=== PATIENT | female | born 1985 | race Caucasian/White ===

== ENCOUNTER 2017-05-16 17:58 | Emergency (ER) | payer MEDICAID, OTHER ==
[~2017-05-16] VITALS: Ht 160 cm; Wt 50.0 kg
[~2017-05-16 17:58] MED LIST: LO LTAB PO; ZOLO50TA PO
[2017-05-16 18:00] VITALS: BP 109/54; PULSE 56; RESP 15; TEMP 98.2; O2SAT 98
[2017-05-16] MEDS ORDERED: OCUF0.3D RIGHT EYE (19:27)
--- NOTE | 2017-05-16 19:27 | PD ---
HPI Chief Complaint: Eye Problems/Injury Time Seen by Provider: 19:17 Travel History International Travel<30 days: No Contact w/Intl Traveler<30days: No Traveled to known affect area: No History of Present Illness HPI 32-year-old female who wears contacts, presents emergency brought in for evaluation right eye irritation. Patient states that she took her contacts off yesterday and they were "stuck." She noticed an area of redness under the contact and moderate pain associated with it. She states the pain has not gotten significantly worse but she notices the redness has. Reports some tearing of the eye. Denies any trauma. No foreign body sensation. No visual changes. She has no other symptoms to report. PFSH Past Medical History Medical History: Denies Significant Hx Diminished Hearing: No ?: Not LMP: 05/13/2017 Social History Alcohol Use: No Tobacco Use: Yes (/ PPD) Substance Use: No Allergies-Medications (Allergen,Severity, Reaction): Coded Allergies: No Known Allergies (Verified , 12/08/14) Reported Meds & Prescriptions Reported Meds & Active Scripts Active Ocuflox Opth Drops (Ofloxacin Opth Drops) 0.3 % Drops 1 Drop RIGHT EYE Q6HR Review of Systems Except as stated in HPI: all other systems reviewed are Neg Physical Exam Narrative GENERAL: Well-nourished, well-developed male patient in no acute distress SKIN: Focused skin assessment warm/dry. HEAD: Normocephalic. EYES: No scleral icterus. Injection of the right eye. Tearing but no purulence. EOMI. There is a noted ulcerative lesion at 7:00 near the corneal limbal junction it measures approximately 2 mm in diameter. NECK: Supple, trachea midline. No JVD or lymphadenopathy. CARDIOVASCULAR: Regular rate and rhythm without murmurs, gallops, or rubs. RESPIRATORY: Breath sounds equal bilaterally. No accessory muscle use. Data Data Last Documented VS Vital Signs Date Time Temp Pulse Resp B/P (MAP) Pulse Ox O2 Delivery O2 Flow Rate FiO2 05/16/17 19:41 98.5 62 16 121/63 (82) 99 MDM Medical Decision Making Medical Screen Exam Complete: Yes Emergency Medical Condition: Yes Medical Record Reviewed: Yes Differential Diagnosis Corneal abrasion versus ulcerative lesion versus conjunctivitis versus foreign body Narrative Course 22year-old female presents to the emergency department for evaluation of right eye irritation. Physical exam is consistent with an ulcerative lesion. This is likely due to wearing her contacts for too long. I have advised the patient to not wear the contacts until this has been cleared by an services mgr. She 'll be started on ophthalmic drops. She agrees to return immediately with any acute worsening symptoms. Diagnosis Primary Impression: Cornea ulcer Qualified Codes: H16.001 - Unspecified corneal ulcer, right eye Referrals: Renee Marte MD Primary Care Physician Patient Instructions: Corneal Ulcer (ED), General Instructions Additional Instructions: Follow-up with an services mgr Do not wear your contacts until complete resolution Follow-up with primary care provider Return immediately with any acute worsening of symptoms Med/Other Pt SpecificInfo: Prescription(s) given Scripts Ofloxacin Opth Drops (Ocuflox Opth Drops) 0.3 % Drops 1 DROP RIGHT EYE Q6HR for Infection, #1 BOTTLE 0 Refills Prov: Licha Montemayor 05/16/17 Disposition: 01 DISCHARGE HOME Condition: Stable Licha Montemayor May 16, 2017 19:27
[2017-05-16 19:41] VITALS: BP 121/63; TEMP 98.5
== END 2017-05-16 19:54 | disposition home or self-care (01) ==
LOC: NEPK 17:58
DX: H16.001 Unspecified corneal ulcer, right eye (principal)
CPT/HCPCS: 99283

== ENCOUNTER 2017-11-29 23:55 | Emergency (ER) | payer MEDICAID ==
[~2017-11-29] VITALS: Ht 160 cm; Wt 60.0 kg
[~2017-11-29 23:55] MED LIST changes: -LO LTAB PO; +OCUF0.3D RIGHT EYE; -ZOLO50TA PO
[2017-11-29 23:59] VITALS: BP 141/64; PULSE 100; RESP 16; TEMP 99.1; O2SAT 99
[2017-11-30] MEDS ORDERED: TRICTAB PO (00:39)
[2017-11-30 00:42] VITALS: BP 121/94; PULSE 104; RESP 16; TEMP 98; O2SAT 99
[2017-11-30 01:08] LABS: AUTOMATED NEUTROPHIL # 13.3 TH/MM3 (1.8-7.7); BASOPHIL # 0.1 TH/MM3 (0-0.2); BASOPHIL % 0.4 % (0.0-2.0); EOSINOPHIL # 0.2 TH/MM3 (0-0.4); EOSINOPHIL % 1.4 % (0.0-4.0); HEMOGLOBIN 12.7 GM/DL (11.6-15.3); LYMPH % 13.2 % (9.0-44.0); LYMPHOCYTE # 2.2 TH/MM3 (1.0-4.8); MEAN CELL VOLUME 87.8 FL (80.0-100.0); MEAN CORPUSCULAR HEMOGLOBIN 30.9 PG (27.0-34.0); MEAN CORPUSCULAR HGB CONC 35.2 % (32.0-36.0); PLATELET COUNT 223 TH/MM3 (150-450); RED CELL DISTRIBUTION WIDTH 15.3 % (11.6-17.2); WHITE BLOOD COUNT 16.8 TH/MM3 (4.0-11.0)
[2017-11-30 01:14] LABS: AMORPHOUS SEDIMENT, URINE RARE; BILIRUBIN, URINE NEG (NEG); BLOOD, URINE LARGE (NEG); GLUCOSE,URINE NEG (NEG); KETONE, URINE 10 mg/dL (NEG); NITRITE,URINE NEG (NEG); PH, URINE 6.5 (5.0-8.5); SQUAMOUS EPITHELIAL CELL URINE 4 /hpf (0-5); URINE LEUKOCYTE ESTERASE MOD (NEG)
--- NOTE | 2017-11-30 01:17 | PD ---
HPI Chief Complaint: Related Problem Time Seen by Provider: 00:37 Travel History International Travel<30 days: No Contact w/Intl Traveler<30days: No Traveled to known affect area: No History of Present Illness HPI Patient is a 32-year-old female she is 10 weeks by dates. she is having bleeding and contraction-like feeling since 4 hr SHIP BOSS in ER , She says" I feel like my water broke." She has Had 3 pregnancies with 2 live births. She had no complications with her prior pregnancies and this is the first time she has ever had vaginal bleeding during . My initial exam by using [id number] ultrasound transabdominal and see what looks to be hemorrhaging in the uterus I do not see a circular conception I do not see a focus of endometrium with a gestational sac looks like a in process missed AB from ultrasound as well as large amounts of endometrium on the outside of her vagina patient will have a thorough pelvic exam labs will be sent at this time she is in minimal distress she is not hypotensive not orthostatic no shortness of breath she is not tachycardic no signs of hemorrhage causing intravascular depletion she is not hypotensive PFSH Past Medical History Medical History: Denies Significant Hx Diminished Hearing: No Influenza Vaccination: No ?: : 3 Para: 2 Past Surgical History Surgical History: No Previous Surgery Social History Alcohol Use: Yes (SOCIALLY) Tobacco Use: Yes (1/2 PPD) Substance Use: Yes (POT) Allergies-Medications (Allergen,Severity, Reaction): Coded Allergies: No Known Allergies (Verified Adverse Reaction, Unknown, 11/30/17) Reported Meds & Prescriptions Reported Meds & Active Scripts Active Reported ( Vit-Ferrous Fumarate) 27 Mg Iron-1 Mg Tab 1 Tab PO DAILY Review of Systems Except as stated in HPI: all other systems reviewed are Neg Genitourinary: Positive: Vaginal Bleeding (10 weeks ) Physical Exam Narrative GENERAL: alert ox3 bleeding clots from her vagina SKIN: Warm and dry. HEAD: Atraumatic. Normocephalic. EYES: Pupils equal and round. No scleral icterus. No injection or drainage. ENT: No nasal bleeding or discharge. Mucous membranes pink and moist. NECK: Trachea midline. No JVD. CARDIOVASCULAR: Regular rate and rhythm. RESPIRATORY: No accessory muscle use. Clear to auscultation. Breath sounds equal bilaterally. GASTROINTESTINAL: Abdomen soft, non-tender, nondistended. Hepatic and splenic margins not palpable. MUSCULOSKELETAL: Extremities without clubbing, cyanosis, or edema. No obvious deformities. NEUROLOGICAL: Awake and alert. No obvious cranial nerve deficits. Motor grossly within normal limits. Five out of 5 muscle strength in the arms and legs. Normal speech. PSYCHIATRIC: Appropriate mood and affect; insight and judgment normal. PELVIC clots and blood pooling in vaginal vault POC US transabdominal -->no gestational sac no pole and blood flowing towards the cervix Data Data Last Documented VS Vital Signs Date Time Temp Pulse Resp B/P (MAP) Pulse Ox O2 Delivery O2 Flow Rate FiO2 11/30/17 03:14 11/30/17 02:51 73 20 76 20 75 20 11/30/17 00:42 98.0 99 Room Air Orders Orders Complete Blood Count With Diff (11/30/17 00:45) Beta Hcg (Quant/Titer) (11/30/17 00:45) Iv Access Insert/Monitor (11/30/17 00:45) Ed Urine Pregnancytest Poc (11/30/17 00:45) Basic Metabolic Panel (Bmp) (11/30/17 00:45) Urinalysis - C+S If Indicated (11/30/17 00:48) Acetaminophen (Tylenol) (11/30/17 01:45) Sodium Chlor 0.9% 1000 Ml Inj (Ns 1000 M (11/30/17 01:45) Ed Discharge Order (11/30/17 03:03) Labs Laboratory Tests Test 11/30/17 00:51 White Blood Count 16.8 TH/MM3 Red Blood Count 4.10 MIL/MM3 Hemoglobin 12.7 GM/DL Hematocrit 36.0 % Mean Corpuscular Volume 87.8 FL Mean Corpuscular Hemoglobin 30.9 PG Mean Corpuscular Hemoglobin Concent 35.2 % Red Cell Distribution Width 15.3 % Platelet Count 223 TH/MM3 Mean Platelet Volume 9.0 FL Neutrophils (%) (Auto) 79.0 % Lymphocytes (%) (Auto) 13.2 % Monocytes (%) (Auto) 6.0 % Eosinophils (%) (Auto) 1.4 % Basophils (%) (Auto) 0.4 % Neutrophils # (Auto) 13.3 TH/MM3 Lymphocytes # (Auto) 2.2 TH/MM3 Monocytes # (Auto) 1.0 TH/MM3 Eosinophils # (Auto) 0.2 TH/MM3 Basophils # (Auto) 0.1 TH/MM3 CBC Comment DIFF FINAL Differential Comment Urine Color RED Urine Turbidity CLOUDY Urine pH 6.5 Urine Specific [place] 1.023 Urine Protein 100 mg/dL Urine Glucose (UA) NEG mg/dL Urine Ketones 10 mg/dL Urine Occult Blood LARGE Urine Nitrite NEG Urine Bilirubin NEG Urine Urobilinogen LESS THAN 2.0 MG/DL Urine Leukocyte Esterase MOD Urine RBC /hpf Urine Squamous Epithelial Cells 4 /hpf Urine Amorphous Sediment RARE Microscopic Urinalysis Comment CULT NOT INDICATED Blood Urea Nitrogen 8 MG/DL Creatinine 0.94 MG/DL Random Glucose 99 MG/DL Calcium Level 8.5 MG/DL Sodium Level 140 MEQ/L Potassium Level 3.5 MEQ/L Chloride Level 105 MEQ/L Carbon Dioxide Level 27.8 MEQ/L Anion Gap 7 MEQ/L Estimat Glomerular Filtration Rate 69 ML/MIN Human Chorionic Gonadotropin, Quant 624 MIU/ML MDM Medical Decision Making Medical Screen Exam Complete: Yes Emergency Medical Condition: Yes Differential Diagnosis Differential diagnosis includes vaginal bleed during versus threatened versus missed versus septic spontaneous loss other Narrative Course Patient's pelvic exam shows multiple clots in the vaginal vault as well as blood pooling in the vaginal vault a large endometrial Gleick clot is placed in a specimen cup and sent to the lab patient's H&H is good she is not anemic she is not tachycardic she is not hypotensive orthostatics are within normal limits there is no drop in blood pressure there is no increase in heart rate on standing she would like to go home she has 2 young children at home her beta quant is 674 which indicates most likely this is a demise that had stopped progressing weeks ago and now she is actually expelling the contents of her uterus she has a follow-up with her surveyor helper in a week I told her she should come back in 2 days if she cannot see her surveyor helper within that time for repeat ultrasound as well as repeat blood work and at that time if she is bleeding heavy she may need a D&C patient agrees with the plan I feel it is safe to discharge her with close follow-up and return to the ER within 2 days Procedures Procedure Narrative POC US by this MD trans abdo pelvic OB sono No pole and no gestational sac and blood and endometrial material flowing towards cervix Diagnosis Primary Impression: Vaginal bleeding affecting early Additional Impression: Missed with demise before 20 completed weeks of gestation Referrals: [facility] Patient Instructions: General Instructions, Threatened Miscarriage (ED) Additional Instructions: Your exam and ultrasound and lab work indicates that you have a demise and now are having a spontaneous loss of your early . You must return to the ER within 2 days for reexam and repeat blood work. Otherwise call your STOVE BOTTOM WORKER to see them within the next 24 hours. If you are unable to follow-up and you feel dizzy lightheaded excessive vaginal bleeding please return immediately to the ER the contents of the loss may need to have a D&C if if they do not completely come out on their own. Come back to the ER for any reasons or any worries Karl Chi MD Nov 30, 2017 01:17
[2017-11-30 01:19] LABS: BICARBONATE 27.8 MEQ/L (21.0-32.0); CALCIUM 8.5 MG/DL (8.5-10.1); CREATININE 0.94 MG/DL (0.50-1.00)
[2017-11-30 01:21] LABS: URINE COLOR RED (YELLW/STRAW)
[2017-11-30] MEDS ORDERED: SODIUM CHLOR 0.9% 1000 ML INJ 1,000 ML IV ONE (01:45)
[2017-11-30] MEDS ORDERED: ACETAMINOPHEN 325 MG TAB PO ONE (01:45)
[2017-11-30 02:51] VITALS: BP_SYST 110; BP_SYST 111; BP_SYST 113; BP_DIAS 55; BP_DIAS 58; RESP 20
== END 2017-11-30 03:15 | disposition home or self-care (01) ==
LOC: NEPC 23:55
DX: O02.1 Missed abortion (principal); O99.331 Smoking (tobacco) complicating pregnancy, first trimester; O99.321 Drug use complicating pregnancy, first trimester; F12.90 Cannabis use, unspecified, uncomplicated; Z3A.10 10 weeks gestation of pregnancy
CPT/HCPCS: 80048; 81001; 84702; 84703; 85025; 96360; 99284; J7030

== ENCOUNTER 2017-12-25 15:22 | Emergency (ER) | payer MEDICAID ==
[~2017-12-25] VITALS: Ht 160 cm; Wt 65.0 kg
[~2017-12-25 15:22] MED LIST changes: -OCUF0.3D RIGHT EYE; +TRICTAB PO
[2017-12-25 15:30] VITALS: BP 167/73; PULSE 80; RESP 18; O2SAT 100
--- NOTE | 2017-12-25 15:49 | PD ---
HPI Chief Complaint: [employer] Room Problem/Complaint Time Seen by Provider: 15:43 Travel History International Travel<30 days: No Contact w/Intl Traveler<30days: No Traveled to known affect area: No History of Present Illness HPI 32-year-old female presents emergency department status post spontaneous 2-1/2 weeks ago. She is here today with complaints of abdominal pain, and flulike symptoms over the past 2 weeks. She denies UTI symptoms, or vaginal discharge or vaginal bleeding. Pain is localized to the epigastric region. She states increased cough and off-and-on fever over the past 2 weeks. She states she has had sinus congestion but no headache or sore throat. She states she is coughed up quite a lot of mucus and has had occasional vomiting, which she feels is due to the mucus. She states no heartburn, or changes in her bowels. She has had decreased appetite, and no changes in her abdominal pain with food intake. Patient denies significant alcohol use. She has however had decreased appetite. She reports increased stress in the last several weeks. She has some shortness of breath with exertion and wheezing. She does a smoker and states she smokes less than half a pack a day. She states she is trying to quit. She has no known drug allergies. PFSH Past Medical History Diminished Hearing: No ?: Not : 3 Para: 2 Social History Alcohol Use: Yes (SOCIALLY) Tobacco Use: Yes (/2 PPD) Substance Use: Yes (POT) Allergies-Medications (Allergen,Severity, Reaction): Coded Allergies: No Known Allergies (Verified Adverse Reaction, Unknown, 12/25/17) Reported Meds & Prescriptions Reported Meds & Active Scripts Active Reported ( Vit-Ferrous Fumarate) 27 Mg Iron-1 Mg Tab 1 Tab PO DAILY Review of Systems Except as stated in HPI: all other systems reviewed are Neg General / Constitutional: Positive: Fever (Intermittent), Chills Eyes: No: Visual changes HENT: Positive: Rhinitis, Rhinorrhea, Congestion, No: Headaches, Vertigo, Lightheadedness, Sore Throat, Nosebleed, Neck Stiffness, Neck Pain, Dental Difficulties, Earache Cardiovascular: No: Chest Pain or Discomfort Respiratory: Positive: Cough, Shortness of Breath, Wheezing, No: Sneezing, Orthopnea, Hemoptysis, Night Sweats, Pleuritic Pain Gastrointestinal: Positive: Vomiting (Posttussive), Abdominal Pain (Epigastric) , No: Nausea, Diarrhea Genitourinary: No: Urgency, Frequency, Dysuria, Pelvic Pain, Flank Pain, Discharge, Vaginal Bleeding Musculoskeletal: No: Pain Skin: No Rash Neurologic: No: Weakness Psychiatric: No: Depression Endocrine: No: Polydipsia Hematologic/Lymphatic: No: Easy Bruising Physical Exam Narrative GENERAL: Patient appears in no obvious distress. SKIN: Warm and dry. Normal color. Normal turgor. No rash HEAD: Atraumatic. Normocephalic. No sinus tenderness to palpation EYES: Pupils equal and round. No scleral icterus. No injection or drainage. ENT: No nasal bleeding or discharge. Mucous membranes pink and moist. TMs are clear bilaterally. Patient is noted to have sinus congestion but no pain. Posterior pharynx is unremarkable except for some mild postnasal drip which is whitish. NECK: Trachea midline. No JVD. Supple and nontender. CARDIOVASCULAR: Regular rate and rhythm. RESPIRATORY: No accessory muscle use. Moderate wheezes and rales throughout to auscultation. Breath sounds equal bilaterally. GASTROINTESTINAL: Abdomen soft, mild to moderate epigastric tenderness, nondistended. No lower abdominal pain or suprapubic tenderness with palpation or percussion. No CVA tenderness. Hepatic and splenic margins not palpable. MUSCULOSKELETAL: Extremities without clubbing, cyanosis, or edema. No obvious deformities. NEUROLOGICAL: Awake and alert. No obvious cranial nerve deficits. Motor grossly within normal limits. Five out of 5 muscle strength in the arms and legs. Normal speech. PSYCHIATRIC: Appropriate mood and affect; insight and judgment normal. Data Data Last Documented VS Vital Signs Date Time Temp Pulse Resp B/P (MAP) Pulse Ox O2 Delivery O2 Flow Rate FiO2 12/25/17 15:30 80 18 167/73 (104) 100 Orders Orders Complete Blood Count With Diff (12/25/17 15:50) Comprehensive Metabolic Panel (12/25/17 15:50) D-Dimer (12/25/17 15:50) Act Partial Throm Time (Ptt) (12/25/17 15:50) Prothrombin Time / Inr (Pt) (12/25/17 15:50) Urinalysis - C+S If Indicated (12/25/17 15:50) Influenzae A/B Antigen (12/25/17 15:50) Iv Access Insert/Monitor (12/25/17 15:50) Ecg Monitoring (12/25/17 15:50) Oximetry (12/25/17 15:50) Oxygen Administration (12/25/17 15:50) Chest, Pa & Lat (12/25/17 15:50) Sodium Chloride 0.9% Flush (Ns Flush) (12/25/17 16:00) Methylprednisolone So Succ Inj (Solumedr (12/25/17 16:00) Albuterol-Ipratropium Neb (Duoneb Neb) (12/25/17 16:00) Ct Pulmonary Angiogram (12/25/17 17:04) Iohexol 350 Inj (Omnipaque 350 Inj) (12/25/17 17:36) Labs Laboratory Tests Test 12/25/17 16:05 White Blood Count 8.4 TH/MM3 Red Blood Count 3.46 MIL/MM3 Hemoglobin 10.2 GM/DL Hematocrit 30.1 % Mean Corpuscular Volume 87.0 FL Mean Corpuscular Hemoglobin 29.4 PG Mean Corpuscular Hemoglobin Concent 33.8 % Red Cell Distribution Width 14.9 % Platelet Count 244 TH/MM3 Mean Platelet Volume 8.7 FL Neutrophils (%) (Auto) 69.4 % Lymphocytes (%) (Auto) 19.3 % Monocytes (%) (Auto) 9.7 % Eosinophils (%) (Auto) 0.9 % Basophils (%) (Auto) 0.7 % Neutrophils # (Auto) 5.8 TH/MM3 Lymphocytes # (Auto) 1.6 TH/MM3 Monocytes # (Auto) 0.8 TH/MM3 Eosinophils # (Auto) 0.1 TH/MM3 Basophils # (Auto) 0.1 TH/MM3 CBC Comment DIFF FINAL Differential Comment Prothrombin Time 11.0 SEC Prothromb Time International Ratio 1.1 RATIO Activated Partial Thromboplast Time 27.1 SEC D-Dimer Quantitative (PE/DVT) 2.59 MG/L FEU Urine Color LIGHT-YELLOW Urine Turbidity CLEAR Urine pH 6.5 Urine Specific [place] 1.003 Urine Protein NEG mg/dL Urine Glucose (UA) NEG mg/dL Urine Ketones NEG mg/dL Urine Occult Blood NEG Urine Nitrite NEG Urine Bilirubin NEG Urine Urobilinogen LESS THAN 2.0 MG/DL Urine Leukocyte Esterase NEG Urine RBC LESS THAN 1 /hpf Urine WBC 1 /hpf Urine Squamous Epithelial Cells 1 /hpf Microscopic Urinalysis Comment CULT NOT INDICATED Blood Urea Nitrogen 7 MG/DL Creatinine 1.19 MG/DL Random Glucose 123 MG/DL Total Protein 6.8 GM/DL Albumin 3.7 GM/DL Calcium Level 8.4 MG/DL Alkaline Phosphatase 64 U/L Aspartate Amino Transf (AST/SGOT) 26 U/L Alanine Aminotransferase (ALT/SGPT) 25 U/L Total Bilirubin 0.2 MG/DL Sodium Level 140 MEQ/L Potassium Level 3.5 MEQ/L Chloride Level 109 MEQ/L Carbon Dioxide Level 21.2 MEQ/L Anion Gap 10 MEQ/L Estimat Glomerular Filtration Rate 53 ML/MIN MDM Medical Decision Making Medical Screen Exam Complete: Yes Emergency Medical Condition: Yes Medical Record Reviewed: Yes Differential Diagnosis Epigastric pain. Gastritis. Wheezing. Pneumonia. Bronchitis. Pulmonary embolism. Narrative Course It is noted that the patient had heartburn during her . 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 Labs ordered including CBC, CMP, urinalysis, d-dimer and coagulation studies. Chest x-ray PA and laterals ordered. IV access is obtained the patient is given 125 mg Solu-Medrol IV, and DuoNeb 3. CBC is unremarkable except for a hemoglobin of 10.2, hematocrit of 30.1. Coagulation studies show PT 11.0, INR is 1.1, APTT is 27.1. D-dimer is elevated at 2.59 Chemistries are unremarkable except for chloride 109, creatinine is 1.19, GFR is 53, glucose is 123, calcium is 8.4. Urinalysis is unremarkable. Chest x-ray shows no acute process per radiologist CTA is ordered secondary to the left elevated d-dimer, which is also read negative for any signs of pulmonary embolism per radiologist. Patient will be treated for wheezy bronchitis and presumed gastritis. Patient is treated with Bactrim DS twice daily 10 days per Patient is given prednisone 20 mg daily for 7 days. Patient is given omeprazole 40 mg daily for the next 30 days. Patient is given albuterol metered-dose inhaler 2 puffs every 4-6 hours as needed wheezing Patient is to quit smoking as soon as possible. Work note for today is given. Patient to follow-up if symptoms worsen as needed. Diagnosis Primary Impression: Acute wheezy bronchitis Additional Impression: Gastritis Qualified Codes: K29.70 - Gastritis, unspecified, without bleeding Referrals: [facility] Patient Instructions: Diet for Stomach Ulcers and Gastritis (ED), General Instructions, How to Stop Smoking (DC), Wheezing (ED) Departure Forms: Work Release Enter return to work date: December 27, 2017 Additional Instructions: CBC is unremarkable except for a hemoglobin of 10.2, hematocrit of 30.1. Coagulation studies show PT 11.0, INR is 1.1, APTT is 27.1. D-dimer is elevated at 2.59 Chemistries are unremarkable except for chloride 109, creatinine is 1.19, GFR is 53, glucose is 123, calcium is 8.4. Urinalysis is unremarkable. Chest x-ray shows no acute process per radiologist CTA is ordered secondary to the left elevated d-dimer, which is also read negative for any signs of pulmonary embolism per radiologist. Patient will be treated for wheezy bronchitis and presumed gastritis. Patient is treated with Bactrim DS twice daily 10 days per Patient is given prednisone 20 mg daily for 7 days. Patient is given omeprazole 40 mg daily for the next 30 days. Patient is given albuterol metered-dose inhaler 2 puffs every 4-6 hours as needed wheezing Patient is to quit smoking as soon as possible. Work note for today is given. Patient to follow-up if symptoms worsen as needed. Med/Other Pt SpecificInfo: Prescription(s) given Disposition: 01 DISCHARGE HOME Condition: Stable Barron Correa December 25, 2017 15:49
[2017-12-25] MEDS: RESP: ALBUTEROL 2.5 MG/IPRATROPIUM 0.5 MG NEB (SCH) INH ×2 (15:58→15:59)
[2017-12-25] MEDS ORDERED: methylPREDNISolone SOD SUCC 125 MG/2 ML VIAL IV PUSH ONE (16:00)
[2017-12-25] MEDS ORDERED: SODIUM CHLORIDE 0.9% FLUSH 10 ML FLUSH IVF PRN (16:00)
[2017-12-25 16:32] LABS: AUTOMATED NEUTROPHIL # 5.8 TH/MM3 (1.8-7.7); BASOPHIL # 0.1 TH/MM3 (0-0.2); BASOPHIL % 0.7 % (0.0-2.0); BILIRUBIN, URINE NEG (NEG); BLOOD, URINE NEG (NEG); EOSINOPHIL # 0.1 TH/MM3 (0-0.4); EOSINOPHIL % 0.9 % (0.0-4.0); GLUCOSE,URINE NEG (NEG); HEMATOCRIT 30.1 % (35.0-46.0); HEMOGLOBIN 10.2 GM/DL (11.6-15.3); KETONE, URINE NEG (NEG); LYMPH % 19.3 % (9.0-44.0); LYMPHOCYTE # 1.6 TH/MM3 (1.0-4.8); MEAN CORPUSCULAR HEMOGLOBIN 29.4 PG (27.0-34.0); MEAN CORPUSCULAR HGB CONC 33.8 % (32.0-36.0); MEAN PLATELET VOLUME 8.7 FL (7.0-11.0); MONO % 9.7 % (0.0-8.0); MONOCYTE # 0.8 TH/MM3 (0-0.9); NEUT % 69.4 % (16.0-70.0); NITRITE,URINE NEG (NEG); PH, URINE 6.5 (5.0-8.5); PLATELET COUNT 244 TH/MM3 (150-450); RED BLOOD COUNT 3.46 MIL/MM3 (4.00-5.30); RED CELL DISTRIBUTION WIDTH 14.9 % (11.6-17.2); SQUAMOUS EPITHELIAL CELL URINE 1 /hpf (0-5); URINE COLOR LIGHT-YELLOW (YELLW/STRAW); URINE LEUKOCYTE ESTERASE NEG (NEG); WHITE BLOOD COUNT 8.4 TH/MM3 (4.0-11.0)
[2017-12-25 16:46] LABS: ALBUMIN 3.7 GM/DL (3.4-5.0); AST (GOT) 26 U/L (15-37); BICARBONATE 21.2 MEQ/L (21.0-32.0); BLOOD UREA NITROGEN 7 MG/DL (7-18); CALCIUM 8.4 MG/DL (8.5-10.1); CHLORIDE 109 MEQ/L (98-107); CREATININE 1.19 MG/DL (0.50-1.00); GLOMERULAR FILTRATION RATE 53 ML/MIN (>89); GLUCOSE,RANDOM 123 MG/DL (74-106); SODIUM (NA) 140 MEQ/L (136-145)
[2017-12-25 16:47] LABS: ALT (GPT) 25 U/L (10-53)
[2017-12-25 16:49] LABS: ALKALINE PHOSPHATASE 64 U/L (45-117); INTERNATIONAL NORMALIZED RATIO 1.1 RATIO; TOTAL BILIRUBIN ADULT 0.2 MG/DL (0.2-1.0); TOTAL PROTEIN 6.8 GM/DL (6.4-8.2)
[2017-12-25 16:51] LABS: D-DIMER 2.59 MG/L FEU (0.00-0.50)
[2017-12-25] MEDS ORDERED: IOHEXOL 350 MG/ML 10 ML VIAL (for RAD DIAG) IVCONTRAST ONE (17:36)
--- NOTE | 2017-12-25 17:40 | RADRPT ---
EXAM DATE/TIME: 12/25/2017 17:21 [facility] COMPARISON: No previous studies available for comparison. INDICATIONS : Shortness of breath, miscarage 12 weeks ago. IV CONTRAST: 71 cc Omnipaque 350 (iohexol) IV RADIATION DOSE: 6.00 CTDIvol (mGy) MEDICAL HISTORY : None SURGICAL HISTORY : None. ENCOUNTER: Initial ACUITY: 3 months PAIN SCALE: 2/10 LOCATION: chest TECHNIQUE: Volumetric scanning of the chest was performed using a pulmonary embolism protocol MIP images were re constructed. Using automated exposure control and adjustment of the mA and/or kV according to patien t size, radiation dose was kept as low as reasonably achievable to obtain optimal diagnostic quality images. DICOM format image data is available electronically for review and comparison. Follow-up recommendations for detected pulmonary nodules are based at a minimum on nodule size and pa tient risk factors according to Fleischner Society Guidelines. FINDINGS: PULMONARY ARTERIES: No filling defects are seen in the pulmonary arteries through the segmental level. LUNGS: There is no consolidation or pneumothorax . No concerning pulmonary nodule is visualized. Mild atele ctasis in both lung bases. PLEURAE: There is no pleural thickening or pleural effusion. MEDIASTINUM: There is good visualization of the great vessels of the middle mediastinum. No evidence of mediastin al or hilar adenopathy/mass. MUSCULOSKELETAL: Within normal limits for patient age. MISCELLANEOUS: The visualized upper abdominal organs demonstrate no acute abnormality. CONCLUSION: 1. No evidence of pulmonary embolism. 2. Mild bibasilar atelectasis. Juan Dawkins MD on December 25, 2017 at 17:37 Board Certified Radiologist. This report was verified electronically.
--- NOTE | 2017-12-25 17:43 | RADRPT ---
EXAM DATE/TIME: 12/25/2017 17:34 [facility] COMPARISON: No previous studies available for comparison. INDICATIONS : Cough and chest tightness. MEDICAL HISTORY : None. SURGICAL HISTORY : None. ENCOUNTER: Initial ACUITY: 2 weeks PAIN SCORE: 0/10 LOCATION: Bilateral chest FINDINGS: PA and lateral views of the chest demonstrate the lungs to be symmetrically aerated without evidence of mass, infiltrate or effusion. The cardiomediastinal contours are unremarkable. Osseous structure s are intact. CONCLUSION: Normal examination for a patient of this age. Juan Dawkins MD on December 25, 2017 at 17:40 Board Certified Radiologist. This report was verified electronically.
[2017-12-25] MEDS ORDERED: PRED20 PO (17:57)
[2017-12-25] MEDS ORDERED: OMEP40CA2 PO (17:57)
[2017-12-25] MEDS ORDERED: VENTAER INH (17:57)
[2017-12-25] MEDS ORDERED: BACT800T5 PO (17:57)
[2017-12-25 18:14] VITALS: BP 131/69; PULSE 93; RESP 16; O2SAT 100
== END 2017-12-25 18:17 | disposition home or self-care (01) ==
LOC: NEPD 15:22
DX: J20.9 Acute bronchitis, unspecified (principal); K29.70 Gastritis, unspecified, without bleeding; F17.210 Nicotine dependence, cigarettes, uncomplicated; R05 Cough; R06.02 Shortness of breath
CPT/HCPCS: 71046; 71275; 80053; 81001; 85025; 85379; 85610; 85730; 87804; 94640; 94664; 96374; 99285; J2930; Q9967